=== PATIENT | male | born 1965 | race Caucasian/White ===

== ENCOUNTER 2020-11-30 16:26 | Emergency (ER) | payer MEDICAID, SELFPAY | END 2020-11-30 19:49 | disposition left against medical advice (07) | PROVIDERS: Emergency Provider Emergency Medicine | DX: R73.9 Hyperglycemia, unspecified (principal) ==

== ENCOUNTER 2022-03-24 18:52 | Inpatient (IN) | payer BC, MEDICAID, SELFPAY ==
[2022-03-24 19:14] VITALS: BP 132/88; PULSE 115; O2SAT 94
[2022-03-24 20:15] VITALS: BP 122/86; PULSE 111; RESP 16; TEMP 36.7; O2SAT 95; BMI 28.3
--- NOTE | 2022-03-24 21:40 | ECG_ITS ---
Test Reason : med clearance Blood Pressure : / mmHG Vent. Rate : 098 BPM Atrial Rate : 098 BPM P-R Int : 136 ms QRS Dur : 086 ms QT Int : 380 ms P-R-T Axes : 071 071 029 degrees QTc Int : 485 ms Normal sinus rhythm Prolonged QT RSR' or QR pattern in V1 suggests right ventricular conduction delay Nonspecific ST abnormality Inferior leads Abnormal ECG No previous ECGs available Referred By: Addy Kauffman Electronically Signed By:VEDA MABRY MD
[2022-03-24 21:42] LABS: Appearance Urine Clear; Color Urine Yellow; Glucose Urine UA Negative (Negative); Leukocyte Esterase Urine Negative (Negative); Nitrite Urine Negative (Negative); PH 5.5 (5.0-9.0); UMIC TRIGGER UA YES; Urine Blood Negative (Negative); Urine Ketones 15 mg/dL (Negative); Urine Protein 100 (2+) mg/dL (Neg-Trace)
[2022-03-24 21:47] LABS: Amphetamine Screen Urine Not Detected (Not Detect); Barbiturates, Urine Not Detected (Not Detect); Benzodiazepines Screen Urine Not Detected (Not Detect); Cannabinoid Screen Urine POSITIVE (Not Detect); Cocaine Screen Urine Not Detected (Not Detect); Fentanyl, urine Not Detected (Not Detect); Opiate Screen Urine Not Detected (Not Detect); Phencyclidine Screen Urine Not Detected (Not Detect)
--- NOTE | 2022-03-24 21:48 | ED.PSYCH ---
HPI - Psych General Chief Complaint: Psychiatric Symptoms <PANFILO Horne Last Filed: 03/24/22 22:37> Stated Complaint: general weakness <PANFILO Horne Last Filed: 03/24/22 22:37> Time Seen by Provider: 03/24/22 21:39 <PANFILO Horne Last Filed: 03/24/22 22:37> Source: patient and EMS <PANFILO Horne Last Filed: 03/24/22 22:37> Mode of arrival: EMS <PANFILO Horne Last Filed: 03/24/22 22:37> Limitations: no limitations <PANFILO Horne Last Filed: 03/24/22 22:37> History of Present Illness HPI Narrative: This is a 56-year-old male presenting to the emergency department with alcohol intoxication, suicidal, homicidal ideation times a few days. Patient tells me lately he has been feeling like he wants to hang himself, and harm other people and he is afraid he might do it. Patient tells me that he has also been drinking excessively over the past 10 days, tells me he has been drinking a few sleeves of vodka a day. Patient denies any other drugs or tobacco. Patient does not have a particular plan on how he wants to harm other people. He denies visual, auditory and tactile hallucinations. He denies medical complaints this time. <PANFILO Horne Last Filed: 03/24/22 22:37> Related Data Home Medications: Home Medications Medication Instructions Recorded Confirmed atorvastatin 40 mg tablet 1 tab PO DAILY 03/24/22 03/24/22 metformin 1,000 mg tablet 1 tab PO DAILY 03/24/22 03/24/22 <PANFILO Horne Last Filed: 03/24/22 22:37> Allergies/Adverse Reactions: Allergies Allergy/AdvReac Type Severity Reaction Status Date / Time No Known Allergies Allergy Verified 03/24/22 20:19 <PANFILO Horne Last Filed: 03/24/22 22:37> Review of Systems Review of Systems: Constitutional : No Fever, No Chills ENT/Mouth : No Ear Pain, No Nasal Congestion, No sore throat Eyes: No Eye Pain, No Swelling, No Redness Cardiovascular : No Chest Pain, No SOB Respiratory : No Cough, No Sputum, No Dyspnea Gastrointestinal : No Nausea, No Vomiting, No Diarrhea, No Hematochezia, No Melena Genitourinary : No Dysuria, No Urinary Frequency, No Hematuria Musculoskeletal : No Myalgias Skin : No Skin Lesions, No rash Neuro : No Weakness, No Numbness, No Paresthesias, No Dizziness, No Headache Psych : positive Anxiety, positive Depression, positive SI/HI All other systems reviewed and are negative <PANFILO Horne - Last Filed: 03/24/22 22:37> Yes all other systems are reviewed and are negative <PANFILO Horne - Last Filed: 03/24/22 22:37> [facility] Past Medical History Attestation statement: The following information was validated with the patient. <PANFILO Horne - Last Filed: 03/24/22 22:37> Source: old records reviewed and nursing notes reviewed <PANFILO Horne - Last Filed: 03/24/22 22:37> Social History Social History: Social History Alcohol intake: current Alcohol intake frequency: 3 or more drinks per day Alcohol type: hard liquor Use of substances other than those prescribed or required for medical reasons: Yes Substance Use Type: Marijuana Substance Use Frequency: Occasionally Last Used Substance: Days (ago) Advance Directives: No Advance Directives Information Provided: No <PANFILO Horne - Last Filed: 03/24/22 22:37> Physical Exam Vital Signs: Vital Signs: Last Vital Signs Temp 98.4 F 03/25/22 08:35 Pulse 124 H 03/25/22 08:35 Resp 17 03/25/22 08:35 BP 150/99 H 03/25/22 08:35 Pulse Ox 92 03/25/22 08:35 O2 Del Method 03/25/22 08:35 BMI result Body Mass Index 28.3 vss <PANFILO Horne Last Filed: 03/24/22 22:37> Vital Signs: Last Vital Signs Temp 98.4 F 03/25/22 08:35 Pulse 124 H 03/25/22 08:35 Resp 17 03/25/22 08:35 BP 150/99 H 03/25/22 08:35 Pulse Ox 92 03/25/22 08:35 O2 Del Method 03/25/22 08:35 BMI result Body Mass Index 28.3 <Meet Waters MD - Last Filed: 03/25/22 09:45> Appearance: Alert.? Oriented X3.? No acute distress.? Head: Normocephalic, atraumatic, no step-offs or deformities Eyes: Pupils equal, round and reactive to light.? Neck: Normal inspection.? Neck supple.? CVS: Normal heart rate and rhythm.? Pulses normal.? Respiratory: No respiratory distress.? Breath sounds normal.? Abdomen: Soft and nontender.? Skin: Skin warm and dry.? Normal skin color.? Normal skin turgor.? Extremities: No lower extremity edema.? No calf ttp. 5/5 strength to bilateral upper and lower extremities Neuro: Oriented X 3.? No motor deficit.? No sensory deficit. CN 2-12 intact <PANFILO Horne - Last Filed: 03/24/22 22:37> Course Reevaluation(s) Reevaluation #1: CBC appears to be within normal limits. Chemistry with no acute findings requiring intervention, anion gap elevated secondary to alcohol abuse, transaminitis elevated however not tender to palpation of abdomen on exam. I suspect this is likely secondary to chronic alcohol abuse. UA clean without infection. Toxicology positive for marijuana. Ethanol level to 0 7 consistent with acute alcohol intoxication. COVID negative. This time patient will be placed into physician observation to allow more time to be evaluated by the behavioral health team. At time observation started common cooperative no acute distress will continue to monitor. Patient will be placed on a Section 12 <PANFILO Horne - Last Filed: 03/24/22 22:37> Time: 22:36 <PANFILO Horne - Last Filed: 03/24/22 22:37> Reevaluation #2: 56-year-old male with alcohol abuse came in for SI and HI, still to be evaluated by N and expect inpatient bed search, patient is a showing a mild symptoms of alcohol withdrawal with CIWA score of 8-10 will start the patient on phenobarb p.o.. And keep monitoring. <Meet Waters MD - Last Filed: 03/25/22 09:45> Time: 09:44 <Meet Waters MD - Last Filed: 03/25/22 09:45> Medications Administered Generic Name Dose Route Start Last Admin Trade Name Freq PRN Reason Stop Dose Admin Atorvastatin Calcium 40 mg 03/25/22 09:00 03/25/22 08:13 Atorvastatin Calcium 40 Mg Tablet PO 40 mg DAILY PETER Administration Chlordiazepoxide HCl 50 mg 03/25/22 07:13 03/25/22 08:13 Chlordiazepoxide Hcl 25 Mg Capsule PO 50 mg Q6H PRN Administration Alcohol Withdrawal Metformin HCl 1,000 mg 03/25/22 09:00 03/25/22 08:13 Metformin Hcl 1,000 Mg Tablet PO 1,000 mg DAILY PETER Administration Discontinued Medications Generic Name Dose Route Start Last Admin Trade Name Freq PRN Reason Stop Dose Admin Chlordiazepoxide HCl 50 mg 03/25/22 02:46 03/25/22 02:50 Chlordiazepoxide Hcl 25 Mg Capsule PO 03/25/22 02:47 50 mg ONCE ONE Administration <PANFILO Horne - Last Filed: 03/24/22 22:37> Medications Administered Generic Name Dose Route Start Last Admin Trade Name Freq PRN Reason Stop Dose Admin Atorvastatin Calcium 40 mg 03/25/22 09:00 03/25/22 08:13 Atorvastatin Calcium 40 Mg Tablet PO 40 mg DAILY PETER Administration Chlordiazepoxide HCl 50 mg 03/25/22 07:13 03/25/22 08:13 Chlordiazepoxide Hcl 25 Mg Capsule PO 50 mg Q6H PRN Administration Alcohol Withdrawal Metformin HCl 1,000 mg 03/25/22 09:00 03/25/22 08:13 Metformin Hcl 1,000 Mg Tablet PO 1,000 mg DAILY PETER Administration Discontinued Medications Generic Name Dose Route Start Last Admin Trade Name Freq PRN Reason Stop Dose Admin Chlordiazepoxide HCl 50 mg 03/25/22 02:46 03/25/22 02:50 Chlordiazepoxide Hcl 25 Mg Capsule PO 03/25/22 02:47 50 mg ONCE ONE Administration <Meet Waters MD - Last Filed: 03/25/22 09:45> MDM - Psych MDM Narrative Medical decision making narrative: [id number] 56-year-old male presents to the emergency department with suicidal, homicidal ideation and ETOH. Physical examination benign Plan at this time medical clearance evaluation by the behavioral health team. <PANFILO Horne - Last Filed: 03/24/22 22:37> Medical Records Attestation: I reviewed the patient's medical records. <PANFILO Horne - Last Filed: 03/24/22 22:37> Lab Data Attestation: I reviewed the patient's lab results. <PANFILO Horne - Last Filed: 03/24/22 22:37> Result diagrams: : 03/24/22 21:58 03/24/22 21:58 <PANFILO Horne - Last Filed: 03/24/22 22:37> Labs: Lab Results 03/24/22 03/24/22 03/24/22 Range/Units 21:28 21:28 21:29 WBC (4.8-10.8) X10*3/uL RBC (4.60-5.80) X10*6/uL Hgb (14.0-18.0) g/dl Hct (42.0-52.0) % MCV (80.0-98.0) fL MCH (27.0-33.0) pg MCHC (31.0-36.0) g/dl RDW (11.0-16.0) % Plt Count (160-400) X10*3/uL MPV (9.4-12.4) fL Immature Gran % (Auto) (0.0-0.4) % Neut % (Auto) (45-73) % Lymph % (Auto) (20-40) % Harris % (Auto) (2-11) % Eos % (Auto) (0-4) % Baso % (Auto) (0-2) % Lymph # (Auto) (1.2-4.9) X10*3/uL Harris # (Auto) (0.1-1.2) X10*3/uL Eos # (Auto) (0.0-0.4) X10*3/uL Baso # (Auto) (0.0-0.2) X10*3/uL Abs Immat Gran (auto) (0.00-0.03) X10*3/uL Absolute Neuts (auto) (2.0-8.3) x10*3/uL Absolute Nucleated RBC (0.0-0.012) X10*3/uL Nucleated RBC % (auto) (0.0-0.2) /100WBC Sodium (135-145) mmol/L Potassium (3.3-5.1) mmol/L Chloride (96-108) mmol/L Carbon Dioxide (22-29) mmol/L Anion Gap (12-20) BUN (9-16) mg/dL Creatinine (0.5-1.4) mg/dL Estim Creat Clear Calc Estimated GFR POC Glucose (60-115) mg/dL Random Glucose (60-115) mg/dL Calcium (8.4-10.2) mg/dL Magnesium (1.6-2.6) mg/dL Total Bilirubin (0.0-1.0) mg/dL AST (5-37) U/L ALT (0-40) U/L Alkaline Phosphatase (39-117) U/L Total Protein (6.5-8.0) g/dL Albumin (3.5-5.0) g/dL Urine Color Yellow Urine Appearance Clear Urine pH 5.5 (5.0-9.0) Ur Specific [place] 1.010 (1.005-1.025) Urine Protein 100 (2+) H (Neg-Trace) mg/dL Urine Glucose (UA) Negative (Negative) mg/dL Urine Ketones 15 (Negative) mg/dL Urine Blood Negative (Negative) Urine Nitrite Negative (Negative) Ur Leukocyte Esterase Negative (Negative) Urine RBC 0-2 (0-2) /HPF Urine WBC 0-5 (0-5) /HPF Ur Squamous Epith Cells 0-2 (0-2) /HPF Urine Bacteria None Seen (None Seen) Hyaline Casts 0-2 (0-2) /LPF Urine Opiates Screen Not Detected (Not Detect) Urine Fentanyl Screen Not Detected (Not Detect) Ur Barbiturates Screen Not Detected (Not Detect) Ur Phencyclidine Scrn Not Detected (Not Detect) Ur Amphetamines Screen Not Detected (Not Detect) U Benzodiazepines Scrn Not Detected (Not Detect) Urine Cocaine Screen Not Detected (Not Detect) U Marijuana (THC) Screen POSITIVE H (Not Detect) Ethyl Alcohol mg/dL COVID-19 ([facility]) Negative (Negative) COVID-19 Clin Com See Note 03/24/22 03/24/22 03/25/22 Range/Units 21:58 21:58 07:04 WBC 8.8 (4.8-10.8) X10*3/uL RBC 5.35 (4.60-5.80) X10*6/uL Hgb 16.6 (14.0-18.0) g/dl Hct 47.2 (42.0-52.0) % MCV 88.2 (80.0-98.0) fL MCH 31.0 (27.0-33.0) pg MCHC 35.2 (31.0-36.0) g/dl RDW 11.7 (11.0-16.0) % Plt Count 168 (160-400) X10*3/uL MPV 10.0 (9.4-12.4) fL Immature Gran % (Auto) 0.3 (0.0-0.4) % Neut % (Auto) 70.9 (45-73) % Lymph % (Auto) 23.2 (20-40) % Harris % (Auto) 4.5 (2-11) % Eos % (Auto) 0.5 (0-4) % Baso % (Auto) 0.6 (0-2) % Lymph # (Auto) 2.1 (1.2-4.9) X10*3/uL Harris # (Auto) 0.4 (0.1-1.2) X10*3/uL Eos # (Auto) 0.0 (0.0-0.4) X10*3/uL Baso # (Auto) 0.1 (0.0-0.2) X10*3/uL Abs Immat Gran (auto) 0.03 (0.00-0.03) X10*3/uL Absolute Neuts (auto) 6.3 (2.0-8.3) x10*3/uL Absolute Nucleated RBC 0.000 (0.0-0.012) X10*3/uL Nucleated RBC % (auto) 0.0 (0.0-0.2) /100WBC Sodium 138 (135-145) mmol/L Potassium 3.9 (3.3-5.1) mmol/L Chloride 95 L (96-108) mmol/L Carbon Dioxide 24 (22-29) mmol/L Anion Gap 23 H (12-20) BUN 8 L (9-16) mg/dL Creatinine 0.73 (0.5-1.4) mg/dL Estim Creat Clear Calc 109.5 Estimated GFR > 60 POC Glucose 148 H (60-115) mg/dL Random Glucose 175 H (60-115) mg/dL Calcium 9.3 (8.4-10.2) mg/dL Magnesium 1.8 (1.6-2.6) mg/dL Total Bilirubin 0.4 (0.0-1.0) mg/dL AST 158 H (5-37) U/L ALT 182 H (0-40) U/L Alkaline Phosphatase 91 (39-117) U/L Total Protein 7.5 (6.5-8.0) g/dL Albumin 4.7 (3.5-5.0) g/dL Urine Color Urine Appearance Urine pH (5.0-9.0) Ur Specific [place] (1.005-1.025) Urine Protein (Neg-Trace) mg/dL Urine Glucose (UA) (Negative) mg/dL Urine Ketones (Negative) mg/dL Urine Blood (Negative) Urine Nitrite (Negative) Ur Leukocyte Esterase (Negative) Urine RBC (0-2) /HPF Urine WBC (0-5) /HPF Ur Squamous Epith Cells (0-2) /HPF Urine Bacteria (None Seen) Hyaline Casts (0-2) /LPF Urine Opiates Screen (Not Detect) Urine Fentanyl Screen (Not Detect) Ur Barbiturates Screen (Not Detect) Ur Phencyclidine Scrn (Not Detect) Ur Amphetamines Screen (Not Detect) U Benzodiazepines Scrn (Not Detect) Urine Cocaine Screen (Not Detect) U Marijuana (THC) Screen (Not Detect) Ethyl Alcohol 207 mg/dL COVID-19 ([facility]) (Negative) COVID-19 Clin Com <PANFILO Horne - Last Filed: 03/24/22 22:37> Lab Results 11/12/22 11/12/22 11/12/22 Range/Units 21:28 21:28 21:29 WBC (4.8-10.8) X10*3/uL RBC (4.60-5.80) X10*6/uL Hgb (14.0-18.0) g/dl Hct (42.0-52.0) % MCV (80.0-98.0) fL MCH (27.0-33.0) pg MCHC (31.0-36.0) g/dl RDW (11.0-16.0) % Plt Count (160-400) X10*3/uL MPV (9.4-12.4) fL Immature Gran % (Auto) (0.0-0.4) % Neut % (Auto) (45-73) % Lymph % (Auto) (20-40) % Harris % (Auto) (2-11) % Eos % (Auto) (0-4) % Baso % (Auto) (0-2) % Lymph # (Auto) (1.2-4.9) X10*3/uL Harris # (Auto) (0.1-1.2) X10*3/uL Eos # (Auto) (0.0-0.4) X10*3/uL Baso # (Auto) (0.0-0.2) X10*3/uL Abs Immat Gran (auto) (0.00-0.03) X10*3/uL Absolute Neuts (auto) (2.0-8.3) x10*3/uL Absolute Nucleated RBC (0.0-0.012) X10*3/uL Nucleated RBC % (auto) (0.0-0.2) /100WBC Sodium (135-145) mmol/L Potassium (3.3-5.1) mmol/L Chloride (96-108) mmol/L Carbon Dioxide (22-29) mmol/L Anion Gap (12-20) BUN (9-16) mg/dL Creatinine (0.5-1.4) mg/dL Estim Creat Clear Calc Estimated GFR POC Glucose (60-115) mg/dL Random Glucose (60-115) mg/dL Calcium (8.4-10.2) mg/dL Magnesium (1.6-2.6) mg/dL Total Bilirubin (0.0-1.0) mg/dL AST (5-37) U/L ALT (0-40) U/L Alkaline Phosphatase (39-117) U/L Total Protein (6.5-8.0) g/dL Albumin (3.5-5.0) g/dL Urine Color Yellow Urine Appearance Clear Urine pH 5.5 (5.0-9.0) Ur Specific [place] 1.010 (1.005-1.025) Urine Protein 100 (2+) H (Neg-Trace) mg/dL Urine Glucose (UA) Negative (Negative) mg/dL Urine Ketones 15 (Negative) mg/dL Urine Blood Negative (Negative) Urine Nitrite Negative (Negative) Ur Leukocyte Esterase Negative (Negative) Urine RBC 0-2 (0-2) /HPF Urine WBC 0-5 (0-5) /HPF Ur Squamous Epith Cells 0-2 (0-2) /HPF Urine Bacteria None Seen (None Seen) Hyaline Casts 0-2 (0-2) /LPF Urine Opiates Screen Not Detected (Not Detect) Urine Fentanyl Screen Not Detected (Not Detect) Ur Barbiturates Screen Not Detected (Not Detect) Ur Phencyclidine Scrn Not Detected (Not Detect) Ur Amphetamines Screen Not Detected (Not Detect) U Benzodiazepines Scrn Not Detected (Not Detect) Urine Cocaine Screen Not Detected (Not Detect) U Marijuana (THC) Screen POSITIVE H (Not Detect) Ethyl Alcohol mg/dL COVID-19 ([facility]) Negative (Negative) COVID-19 Clin Com See Note 03/24/22 03/24/22 03/25/22 Range/Units 21:58 21:58 07:04 WBC 8.8 (4.8-10.8) X10*3/uL RBC 5.35 (4.60-5.80) X10*6/uL Hgb 16.6 (14.0-18.0) g/dl Hct 47.2 (42.0-52.0) % MCV 88.2 (80.0-98.0) fL MCH 31.0 (27.0-33.0) pg MCHC 35.2 (31.0-36.0) g/dl RDW 11.7 (11.0-16.0) % Plt Count 168 (160-400) X10*3/uL MPV 10.0 (9.4-12.4) fL Immature Gran % (Auto) 0.3 (0.0-0.4) % Neut % (Auto) 70.9 (45-73) % Lymph % (Auto) 23.2 (20-40) % Harris % (Auto) 4.5 (2-11) % Eos % (Auto) 0.5 (0-4) % Baso % (Auto) 0.6 (0-2) % Lymph # (Auto) 2.1 (1.2-4.9) X10*3/uL Harris # (Auto) 0.4 (0.1-1.2) X10*3/uL Eos # (Auto) 0.0 (0.0-0.4) X10*3/uL Baso # (Auto) 0.1 (0.0-0.2) X10*3/uL Abs Immat Gran (auto) 0.03 (0.00-0.03) X10*3/uL Absolute Neuts (auto) 6.3 (2.0-8.3) x10*3/uL Absolute Nucleated RBC 0.000 (0.0-0.012) X10*3/uL Nucleated RBC % (auto) 0.0 (0.0-0.2) /100WBC Sodium 138 (135-145) mmol/L Potassium 3.9 (3.3-5.1) mmol/L Chloride 95 L (96-108) mmol/L Carbon Dioxide 24 (22-29) mmol/L Anion Gap 23 H (12-20) BUN 8 L (9-16) mg/dL Creatinine 0.73 (0.5-1.4) mg/dL Estim Creat Clear Calc 109.5 Estimated GFR > 60 POC Glucose 148 H (60-115) mg/dL Random Glucose 175 H (60-115) mg/dL Calcium 9.3 (8.4-10.2) mg/dL Magnesium 1.8 (1.6-2.6) mg/dL Total Bilirubin 0.4 (0.0-1.0) mg/dL AST 158 H (5-37) U/L ALT 182 H (0-40) U/L Alkaline Phosphatase 91 (39-117) U/L Total Protein 7.5 (6.5-8.0) g/dL Albumin 4.7 (3.5-5.0) g/dL Urine Color Urine Appearance Urine pH (5.0-9.0) Ur Specific [place] (1.005-1.025) Urine Protein (Neg-Trace) mg/dL Urine Glucose (UA) (Negative) mg/dL Urine Ketones (Negative) mg/dL Urine Blood (Negative) Urine Nitrite (Negative) Ur Leukocyte Esterase (Negative) Urine RBC (0-2) /HPF Urine WBC (0-5) /HPF Ur Squamous Epith Cells (0-2) /HPF Urine Bacteria (None Seen) Hyaline Casts (0-2) /LPF Urine Opiates Screen (Not Detect) Urine Fentanyl Screen (Not Detect) Ur Barbiturates Screen (Not Detect) Ur Phencyclidine Scrn (Not Detect) Ur Amphetamines Screen (Not Detect) U Benzodiazepines Scrn (Not Detect) Urine Cocaine Screen (Not Detect) U Marijuana (THC) Screen (Not Detect) Ethyl Alcohol 207 mg/dL COVID-19 ([facility]) (Negative) COVID-19 Clin Com <Meet Waters MD - Last Filed: 03/25/22 09:45> Critical Care Time Critical Care Time Critical Care Time: No <PANFILO Horne - Last Filed: 03/24/22 22:37> Discharge Plan Discharge Clinical Impression: Suicidal ideation, Depression, Acute anxiety, Alcohol intoxication <PANFILO Horne - Last Filed: 03/24/22 22:37> Patient Disposition: Still a Patient <PANFILO Horne - Last Filed: 03/24/22 22:37> Prescriptions: No Action atorvastatin 40 mg tablet 1 tab PO DAILY metformin 1,000 mg tablet 1 tab PO DAILY <PANFILO Horne - Last Filed: 03/24/22 22:37>
[2022-03-24 21:50] LABS: COVID-19 Test Negative (Negative)
[2022-03-24 22:05] LABS: MANUAL DIFF FLAG NO
[2022-03-24 22:07] LABS: Basophils Absolute Auto 0.1 X10*3/uL (0.0-0.2); Basophils Percent Auto 0.6 % (0-2); Eosinophils Percent Auto 0.5 % (0-4); Hematocrit 47.2 % (42.0-52.0); Hemoglobin 16.6 g/dl (14.0-18.0); Imm Gran Abs Auto 0.03 X10*3/uL (0.00-0.03); Imm Gran Pct Auto 0.3 % (0.0-0.4); Lymphocytes Absolute Auto 2.1 X10*3/uL (1.2-4.9); Lymphocytes Percent Auto 23.2 % (20-40); Mean Corpuscular HGB Conc 35.2 g/dl (31.0-36.0); Mean Corpuscular Volume 88.2 fL (80.0-98.0); Monocytes Absolute Auto 0.4 X10*3/uL (0.1-1.2); Monocytes Percent Auto 4.5 % (2-11); Neutrophils Absolute Auto 6.3 x10*3/uL (2.0-8.3); Neutrophils Percent Auto 70.9 % (45-73); Platelet Count 168 X10*3/uL (160-400); Red Blood Count 5.35 X10*6/uL (4.60-5.80); Red Cell Distribution Width 11.7 % (11.0-16.0); White Blood Count 8.8 X10*3/uL (4.8-10.8)
[2022-03-24 22:22] LABS: Alanine Aminotransferase 182 U/L (0-40); Albumin Level 4.7 g/dL (3.5-5.0); Alkaline Phosphatase 91 U/L (39-117); Anion Gap 23 (12-20); Aspartate Amino Transferase 158 U/L (5-37); Bilirubin Total 0.4 mg/dL (0.0-1.0); Blood Urea Nitrogen 8 mg/dL (9-16); Calcium 9.3 mg/dL (8.4-10.2); Carbon Dioxide 24 mmol/L (22-29); Chloride 95 mmol/L (96-108); Creatinine Clr Calc Pharmacy 109.5; Estimated Glomerular Filt Rate > 60; Ethanol 207 mg/dL; Glucose Random 175 mg/dL (60-115); Magnesium 1.8 mg/dL (1.6-2.6); Potassium 3.9 mmol/L (3.3-5.1); Sodium 138 mmol/L (135-145); Total Protein 7.5 g/dL (6.5-8.0)
[2022-03-24 23:33] LABS: Bacteria Urine None Seen (None Seen); Hyaline Casts Urine 0-2 /LPF (0-2); RBC Urine 0-2 /HPF (0-2); Squamous Epithelial Cell Urine 0-2 /HPF (0-2); WBC Urine 0-5 /HPF (0-5)
[2022-03-25] VITALS (8 sets, daily range): BP systolic 128–163; BP diastolic 80–100; PULSE 96–124; RESP 15–18; TEMP 36.3–37.1; O2SAT 91–97
--- NOTE | 2022-03-25 02:45 | PC.NURSE ---
Pt HR 120, pt showing signs of tremors. MD Rojo notified orders being placed.
[2022-03-25] MEDS: chlordiazePOXIDE HCl 25 MG CAPSULE 50 MG PO ×2 (02:50→08:13)
--- NOTE | 2022-03-25 03:38 | PC.NURSE ---
Pt sleeping respirations regular and adequate.
[2022-03-25 07:13] LABS: Glucose, Whole Blood 148 mg/dL (60-115)
--- NOTE | 2022-03-25 07:22 | MHC.CARE ---
Jerrod Smart Sheet Submitted
--- NOTE | 2022-03-25 07:27 | PC.NURSE ---
Addendum entered by Desi Humphrey 03/25/22 08:32: Provider notified of CIWA of 8 s/p PRN Librium administration. HR 125, BP 150/99. Pt given vomit bag Original Note: Report taken from overnight shift. No acute incidents. Plan is for N to eval this AM
[2022-03-25] MEDS: Atorvastatin Calcium 40 MG TABLET PO (08:13)
[2022-03-25] MEDS: metFORMIN HCl 1,000 MG TABLET 1000 MG PO (08:13)
--- NOTE | 2022-03-25 10:49 | PHA.MEDREC ---
Pharmacy Consult ? Medication Reconciliation RN has completed the medication reconciliation, pharmacy reviewed. Spoke with patient and he is only on 2 medications. He is no longer on insulin anymore. Patient last took his medications approximately 10 days ago.
--- NOTE | 2022-03-25 14:41 | ECG_ITS ---
Test Reason : MED CLEARANCE FOR M5 OVER 50 Blood Pressure : / mmHG Vent. Rate : 099 BPM Atrial Rate : 099 BPM P-R Int : 144 ms QRS Dur : 080 ms QT Int : 378 ms P-R-T Axes : 071 064 058 degrees QTc Int : 485 ms Normal sinus rhythm Prolonged QT RSR' or QR pattern in V1 suggests right ventricular conduction delay Nonspecific ST abnormality Abnormal ECG When compared with ECG of 24-MAR-2022 22:49, Nonspecific T wave abnormality no longer evident in Inferior leads Referred By: Addy Kauffman Electronically Signed By:VEDA MABRY MD
[2022-03-25] MEDS: Nicotine Polacrilex 2 MG GUM 4 MG BUCCAL (17:10)
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
[2022-03-25] MEDS: LORazepam 1 MG TABLET PO (19:56)
[2022-03-25 20:07] LABS: Glucose, Whole Blood 262 mg/dL (60-115)
[2022-03-26 06:00] VITALS: BP 149/99; PULSE 101; RESP 20; TEMP 36.7; O2SAT 95
[2022-03-26 08:41] LABS: Glucose, Whole Blood 167 mg/dL (60-115)
[2022-03-26] MEDS: Atorvastatin Calcium 40 MG TABLET PO (08:46)
[2022-03-26] MEDS: Thiamine HCL 100 MG TABLET PO (08:46)
[2022-03-26] MEDS: metFORMIN HCl 1,000 MG TABLET 1000 MG PO (08:46)
[2022-03-26 09:24] LABS: Alanine Aminotransferase 159 U/L (0-40); Albumin Level 4.3 g/dL (3.5-5.0); Alkaline Phosphatase 102 U/L (39-117); Anion Gap 16 (12-20); Aspartate Amino Transferase 122 U/L (5-37); Bilirubin Total 0.6 mg/dL (0.0-1.0); Blood Urea Nitrogen 12 mg/dL (9-16); Calcium 9.8 mg/dL (8.4-10.2); Carbon Dioxide 30 mmol/L (22-29); Chloride 94 mmol/L (96-108); Cholesterol 169 mg/dL; Creatinine Clr Calc Pharmacy 96.3; Estimated Glomerular Filt Rate > 60; Glucose Fasting 189 mg/dL (60-99); HDL Cholesterol 65 mg/dL; LDL Cholesterol Calculated 90 mg/dl; Potassium 4.1 mmol/L (3.3-5.1); Sodium 136 mmol/L (135-145); Total Protein 6.8 g/dL (6.5-8.0); Triglycerides 70 mg/dL
[2022-03-26] MEDS: Nicotine Polacrilex 2 MG GUM 4 MG BUCCAL ×3 (09:35→13:50)
[2022-03-26 09:49] LABS: Thyroid Stimulating Hormone 0.57 uIU/mL (0.32-4.0)
--- NOTE | 2022-03-26 17:24 | P.HPPS_ITS ---
HPI Date of Service: 03/26/22 Chief Complaint: depression, si Sources of Information: patient interviewed, chart reviewed and crisis/core team assessment reviewed HPI Subjective Notes: [place] Warning and Conditional Voluntary Healthcare Proxy: No Guardianship: No Medical Problems Affecting Mental Status: No Narrative: 56 yo male, to ER on 03/24 with acute alcohol intoxication, SI, HI. Reports drinking as an issue for most of his adult life. Asking for help with getting on track. Identifies his son, age 6, as his motivation for wanting sobriety. Denies current SI, HI. I was drunk . Denies hx of violence, feeling safe on the unit- I will never hurt myself or anyone else and I never have. Denies criminal history Pt reports several interventions for addiction without success-willing to meet with [facility] Addictions team to discuss recovery. Discussed depressive sx-pt acknowledges, denies hx of dennis, hypomania, sx of psychosis, Depression makes sense-I would be willing to work on it. Past Psychiatric History: IP Psych: Denies OP: Denies but with referral interest Addictions Rx: [facility]CA 2020- I got COVID , found it helpful for a while, groups helpful, however when peer group changed to several men who were just released from incarceration, it was less helpful. Reports in and out of programs [phone]- [facility] x 5 pt reports SA- Denies any history Medical Evaluation Reviewed: Yes Reviewed medical clearance and labs with pt. [facility] Medical History (Updated 03/27/22 @ 08:54 by Suzan Galeano, OUTSIDE PRODUCTION INSPECTOR) Alcohol use disorder, severe, dependence Recurrent major depression-severe Narrative: LFT elevation DM-2 HLD Family History: Denies hx of family suicides or violence Mom 78-estranged hx depression-does not talk with pt because I am like my father Sister-depression Father-alcoholism Brother-abusive to pt and his family pt reports- he tortured all of us Social History: Raised by parents, who when he was age 3. Pt lived with his mom. 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 He currently works at [employer] and prefers to be local to be close to his 6 yo son. Pt is . He reports he his , who is from [facility], to help her establish citizenship~11 years ago. They ~2.5 years ago, however, co- parent their 6.yo. Pt's lives in brother's home-recently asked to leave due to a lcohol use and decreased LOF Substance History: Alcohol- few sleeves daily for several weeks. Gradual increase in intake over the past five years. Believes this is the cause of DM2 dx. BAL 207 on admit. Recent binge ~10 days Positive THC Trauma History: Affirms-brother, , father Diagnostics Vital Signs (24Hr): Vital Signs - 24 hr 03/25/22 19:52 03/26/22 06:00 Temperature 97.3 F 98.1 F Pulse Rate 99 101 H Respiratory Rate 16 20 Blood Pressure 134/80 149/99 H Pulse Oximetry 92 95 Oxygen Delivery Method Room Air BMI result Body Mass Index 28.3 Labs Results: 03/24/22 21:58 03/26/22 07:59 Labs: Laboratory Results - last 48 hr 03/24/22 03/24/22 03/24/22 21:28 21:28 21:29 WBC RBC Hgb Hct MCV MCH MCHC RDW Plt Count MPV Immature Gran % (Auto) Neut % (Auto) Lymph % (Auto) [place] % (Auto) Eos % (Auto) Baso % (Auto) Lymph # (Auto) [place] # (Auto) Eos # (Auto) Baso # (Auto) Abs Immat Gran (auto) Absolute Neuts (auto) Absolute Nucleated RBC Nucleated RBC % (auto) Sodium Potassium Chloride Carbon Dioxide Anion Gap BUN Creatinine Estim Creat Clear Calc Estimated GFR POC Glucose Random Glucose Fasting Glucose Calcium Magnesium Total Bilirubin AST ALT Alkaline Phosphatase Total Protein Albumin Triglycerides Cholesterol LDL Cholesterol, Calc HDL Cholesterol TSH Urine Color Yellow Urine Appearance Clear Urine pH 5.5 Ur Specific [place] 1.010 Urine Protein 100 (2+) H Urine Glucose (UA) Negative Urine Ketones 15 Urine Blood Negative Urine Nitrite Negative Ur Leukocyte Esterase Negative Urine RBC 0-2 Urine WBC 0-5 Ur Squamous Epith Cells 0-2 Urine Bacteria None Seen Hyaline Casts 0-2 Urine Opiates Screen Not Detected Urine Fentanyl Screen Not Detected Ur Barbiturates Screen Not Detected Ur Phencyclidine Scrn Not Detected Ur Amphetamines Screen Not Detected U Benzodiazepines Scrn Not Detected Urine Cocaine Screen Not Detected U Marijuana (THC) Screen POSITIVE H Ethyl Alcohol COVID-19 ([facility]) Negative COVID-19 Clin Com See Note 03/24/22 03/24/22 03/25/22 21:58 21:58 07:04 WBC 8.8 RBC 5.35 Hgb 16.6 Hct 47.2 MCV 88.2 MCH 31.0 MCHC 35.2 RDW 11.7 Plt Count 168 MPV 10.0 Immature Gran % (Auto) 0.3 Neut % (Auto) 70.9 Lymph % (Auto) 23.2 [place] % (Auto) 4.5 Eos % (Auto) 0.5 Baso % (Auto) 0.6 Lymph # (Auto) 2.1 [place] # (Auto) 0.4 Eos # (Auto) 0.0 Baso # (Auto) 0.1 Abs Immat Gran (auto) 0.03 Absolute Neuts (auto) 6.3 Absolute Nucleated RBC 0.000 Nucleated RBC % (auto) 0.0 Sodium 138 Potassium 3.9 Chloride 95 L Carbon Dioxide 24 Anion Gap 23 H BUN 8 L Creatinine 0.73 Estim Creat Clear Calc 109.5 Estimated GFR > 60 POC Glucose 148 H Random Glucose 175 H Fasting Glucose Calcium 9.3 Magnesium 1.8 Total Bilirubin 0.4 AST 158 H ALT 182 H Alkaline Phosphatase 91 Total Protein 7.5 Albumin 4.7 Triglycerides Cholesterol LDL Cholesterol, Calc HDL Cholesterol TSH Urine Color Urine Appearance Urine pH Ur Specific [place] Urine Protein Urine Glucose (UA) Urine Ketones Urine Blood Urine Nitrite Ur Leukocyte Esterase Urine RBC Urine WBC Ur Squamous Epith Cells Urine Bacteria Hyaline Casts Urine Opiates Screen Urine Fentanyl Screen Ur Barbiturates Screen Ur Phencyclidine Scrn Ur Amphetamines Screen U Benzodiazepines Scrn Urine Cocaine Screen U Marijuana (THC) Screen Ethyl Alcohol 207 COVID-19 ([facility]) COVID-19 Clin Com 03/25/22 03/26/22 03/26/22 20:02 07:59 08:37 WBC RBC Hgb Hct MCV MCH MCHC RDW Plt Count MPV Immature Gran % (Auto) Neut % (Auto) Lymph % (Auto) [place] % (Auto) Eos % (Auto) Baso % (Auto) Lymph # (Auto) [place] # (Auto) Eos # (Auto) Baso # (Auto) Abs Immat Gran (auto) Absolute Neuts (auto) Absolute Nucleated RBC Nucleated RBC % (auto) Sodium 136 Potassium 4.1 Chloride 94 L Carbon Dioxide 30 H Anion Gap 16 BUN 12 Creatinine 0.83 Estim Creat Clear Calc 96.3 Estimated GFR > 60 POC Glucose 262 H 167 H Random Glucose Fasting Glucose 189 H Calcium 9.8 Magnesium Total Bilirubin 0.6 AST 122 H ALT 159 H Alkaline Phosphatase 102 Total Protein 6.8 Albumin 4.3 Triglycerides 70 Cholesterol 169 LDL Cholesterol, Calc 90 HDL Cholesterol 65 TSH 0.57 Urine Color Urine Appearance Urine pH Ur Specific [place] Urine Protein Urine Glucose (UA) Urine Ketones Urine Blood Urine Nitrite Ur Leukocyte Esterase Urine RBC Urine WBC Ur Squamous Epith Cells Urine Bacteria Hyaline Casts Urine Opiates Screen Urine Fentanyl Screen Ur Barbiturates Screen Ur Phencyclidine Scrn Ur Amphetamines Screen U Benzodiazepines Scrn Urine Cocaine Screen U Marijuana (THC) Screen Ethyl Alcohol COVID-19 ([facility]) COVID-19 Clin Com Meds/Allergies Allergies Allergies Allergy/AdvReac Type Severity Reaction Status Date / Time No Known Allergies Allergy Verified 03/24/22 20:19 Mental Status Exam Mental Status Exam Patient Appearance: Fatigued and Appropriate Patient Orientation: Person, Place, Time and Situation Level of Consciousness: Alert Patient Behavior: Appropriate, Talkative, Cooperative and Good Eye Contact Mood Description: Sad Affect Description: Flat Patient Cognition Impaired: No Ability to Follow Directions: Good Speech Pattern: Spontaneous Speech Memory Description: Episodic Impaired Hallucinations: None Delusions: Not Present Thought Process: Intact and Goal Oriented Thought Content: positive for Intact, positive for Goal Oriented, positive for Suicidal Ideation (denies plan or intent) and positive for Homicidal Ideation (denies plan or intent) Depressive Symptoms: Insomnia, Difficulty Sleeping, Changes in Appetite and Thoughts of /Suicide (denies) Judgement: Good Assessment & Plan Assessment & Plan (1) Alcohol use disorder, severe, dependence: Status: Acute Code(s): F10.20 - Alcohol dependence, uncomplicated (2) Recurrent major depression-severe: Status: Acute Code(s): F33.2 - Major depressive disorder, recurrent severe without psychotic features Plan 56 yo male, history of alcohol use disorder, depression presented with intoxication, SI, HI on 03/24/22 with BAL 207 and urine tox positive for THC. Pt completing detox and is looking for assistance with recovery and depression. No current SI, HI plan or intent-wanting to work on recovery as his six year old son is his motivation for sobriety and for getting treatment. Plan: Addiction Consult Remeron trial B12/Folate Nutritional Replacement Pt unsure right now if he wants to trial residenital again as it has not been too helpful in the past and at times has been frightening to him-He will discuss further with team. 1600-pt approached tw to ask for discharge. and son arrived on the unit and need pt to discharge as they have no funds for groceries pt states. affirms this claim. 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 Brief family meeting with , son, pt and [facility] paraprofessional interpreter. was clear in saying she cannot control pt's drinking, but is concerned and attempts to help him all she can, however, he does not listen to her feedback. She demonstrates care for pt but frustration with current sx of illness. Pt is able to contract for his safety, will be staying with his family tonight and will discharge. As a result, antidepressants were not initiated. Pt is aware he may return if needed. He would not remain for referrals to be made for out pt services. Patient educated on: diagnosis, medication risk/benefits, substance abuse and therapeutic strategies Informed Consent: understands Reason for continued inpatient stay Substantial Risk for: stable for discharge
--- NOTE | 2022-03-26 17:24 | PM.PSYDC ---
DS: Providers Provider Date of Service: 03/26/22 Date of admission: 03/25/22 15:05 Date of discharge: 03/26/22 Primary care physician: Alma Wood MD Admitting clinician: Suzan Galeano Attending physician on admission: Kishore Mena Consults: 03/26/22 12:49 Addiction Medicine Routine Consulting Provider: Addiction Covering Reason for consultation: recovery coaching Has provider been notified: No Attending physician on discharge: Kishore Mena Discharging clinician: Suzan Galeano DS: Diagnosis Discharge Diagnosis (1) Alcohol use disorder, severe, dependence: Status: Acute (2) Recurrent major depression-severe: Status: Acute DS: Medications Discharge Medications Home Medications: Previous Rx's Medication Instructions Recorded atorvastatin 40 mg tablet 1 tab PO DAILY #30 tabs 03/26/22 metformin 1,000 mg tablet 1 tab PO DAILY #30 tabs 03/26/22 multivitamin (Daily-Liliana tablet) 1 tab PO DAILY #30 tabs 03/26/22 thiamine mononitrate (vit B1) 100 100 mg PO DAILY #30 tabs 03/26/22 mg tablet Mental Status Exam Mental Status Exam Patient Appearance: Fatigued and Appropriate Patient Orientation: Person, Place, Time and Situation Level of Consciousness: Alert Patient Behavior: Appropriate, Talkative, Cooperative and Good Eye Contact Mood Description: Sad Affect Description: Flat Patient Cognition Impaired: No Ability to Follow Directions: Good Speech Pattern: Spontaneous Speech Memory Description: Episodic Impaired Hallucinations: None Delusions: Not Present Thought Process: Intact and Goal Oriented Thought Content: positive for Intact, positive for Goal Oriented, positive for Suicidal Ideation (denies plan or intent) and positive for Homicidal Ideation (denies plan or intent) Depressive Symptoms: Insomnia, Difficulty Sleeping, Changes in Appetite and Thoughts of /Suicide (denies) Judgement: Good Data Data Completed and Pending Completed studies during hospitalization [Text1]: 03/24/22 03/24/22 03/24/22 21:28 21:28 21:29 WBC RBC Hgb Hct MCV MCH MCHC RDW Plt Count MPV Immature Gran % (Auto) Neut % (Auto) Lymph % (Auto) [place] % (Auto) Eos % (Auto) Baso % (Auto) Lymph # (Auto) [place] # (Auto) Eos # (Auto) Baso # (Auto) Abs Immat Gran (auto) Absolute Neuts (auto) Absolute Nucleated RBC Nucleated RBC % (auto) Sodium Potassium Chloride Carbon Dioxide Anion Gap BUN Creatinine Estim Creat Clear Calc Estimated GFR POC Glucose Random Glucose Fasting Glucose Calcium Magnesium Total Bilirubin AST ALT Alkaline Phosphatase Total Protein Albumin Triglycerides Cholesterol LDL Cholesterol, Calc HDL Cholesterol TSH Urine Color Yellow Urine Appearance Clear Urine pH 5.5 Ur Specific [place] 1.010 Urine Protein 100 (2+) H Urine Glucose (UA) Negative Urine Ketones 15 Urine Blood Negative Urine Nitrite Negative Ur Leukocyte Esterase Negative Urine RBC 0-2 Urine WBC 0-5 Ur Squamous Epith Cells 0-2 Urine Bacteria None Seen Hyaline Casts 0-2 Urine Opiates Screen Not Detected Urine Fentanyl Screen Not Detected Ur Barbiturates Screen Not Detected Ur Phencyclidine Scrn Not Detected Ur Amphetamines Screen Not Detected U Benzodiazepines Scrn Not Detected Urine Cocaine Screen Not Detected U Marijuana (THC) Screen POSITIVE H Ethyl Alcohol COVID-19 ([facility]) Negative COVID-19 Clin Com See Note 03/24/22 03/24/22 03/25/22 21:58 21:58 07:04 WBC 8.8 RBC 5.35 Hgb 16.6 Hct 47.2 MCV 88.2 MCH 31.0 MCHC 35.2 RDW 11.7 Plt Count 168 MPV 10.0 Immature Gran % (Auto) 0.3 Neut % (Auto) 70.9 Lymph % (Auto) 23.2 [place] % (Auto) 4.5 Eos % (Auto) 0.5 Baso % (Auto) 0.6 Lymph # (Auto) 2.1 [place] # (Auto) 0.4 Eos # (Auto) 0.0 Baso # (Auto) 0.1 Abs Immat Gran (auto) 0.03 Absolute Neuts (auto) 6.3 Absolute Nucleated RBC 0.000 Nucleated RBC % (auto) 0.0 Sodium 138 Potassium 3.9 Chloride 95 L Carbon Dioxide 24 Anion Gap 23 H BUN 8 L Creatinine 0.73 Estim Creat Clear Calc 109.5 Estimated GFR > 60 POC Glucose 148 H Random Glucose 175 H Fasting Glucose Calcium 9.3 Magnesium 1.8 Total Bilirubin 0.4 AST 158 H ALT 182 H Alkaline Phosphatase 91 Total Protein 7.5 Albumin 4.7 Triglycerides Cholesterol LDL Cholesterol, Calc HDL Cholesterol TSH Urine Color Urine Appearance Urine pH Ur Specific [place] Urine Protein Urine Glucose (UA) Urine Ketones Urine Blood Urine Nitrite Ur Leukocyte Esterase Urine RBC Urine WBC Ur Squamous Epith Cells Urine Bacteria Hyaline Casts Urine Opiates Screen Urine Fentanyl Screen Ur Barbiturates Screen Ur Phencyclidine Scrn Ur Amphetamines Screen U Benzodiazepines Scrn Urine Cocaine Screen U Marijuana (THC) Screen Ethyl Alcohol 207 COVID-19 ([facility]) COVID-19 Clin Com 03/25/22 03/26/22 03/26/22 20:02 07:59 08:37 WBC RBC Hgb Hct MCV MCH MCHC RDW Plt Count MPV Immature Gran % (Auto) Neut % (Auto) Lymph % (Auto) [place] % (Auto) Eos % (Auto) Baso % (Auto) Lymph # (Auto) [place] # (Auto) Eos # (Auto) Baso # (Auto) Abs Immat Gran (auto) Absolute Neuts (auto) Absolute Nucleated RBC Nucleated RBC % (auto) Sodium 136 Potassium 4.1 Chloride 94 L Carbon Dioxide 30 H Anion Gap 16 BUN 12 Creatinine 0.83 Estim Creat Clear Calc 96.3 Estimated GFR > 60 POC Glucose 262 H 167 H Random Glucose Fasting Glucose 189 H Calcium 9.8 Magnesium Total Bilirubin 0.6 AST 122 H ALT 159 H Alkaline Phosphatase 102 Total Protein 6.8 Albumin 4.3 Triglycerides 70 Cholesterol 169 LDL Cholesterol, Calc 90 HDL Cholesterol 65 TSH 0.57 Urine Color Urine Appearance Urine pH Ur Specific [place] Urine Protein Urine Glucose (UA) Urine Ketones Urine Blood Urine Nitrite Ur Leukocyte Esterase Urine RBC Urine WBC Ur Squamous Epith Cells Urine Bacteria Hyaline Casts Urine Opiates Screen Urine Fentanyl Screen Ur Barbiturates Screen Ur Phencyclidine Scrn Ur Amphetamines Screen U Benzodiazepines Scrn Urine Cocaine Screen U Marijuana (THC) Screen Ethyl Alcohol COVID-19 ([facility]) COVID-19 Clin Com DS: Summary Hospital Course Hospital Course: Admission to adult psychiatry for exacerbation of alcohol use disorder and recurrent major depression. Pt had a brief admission and decided he was not interested once intoxication had resolved. His family needed him to provide financial resources and came to the unit to request that he come home. Pt denies SI, HI plan or intent. He will return to his 's home with their son. He was invited to return if he felt it was needed. Pt states that he believes he does not require in pt psychiatric care but will pursue OP resources on his own. Time spent discussing smoking cessation with patient: 3 to 10 minutes Status at Discharge Functional status at discharge: independent ambulation Overall status at discharge: patient is back to baseline Time Spent with Patient Time attestation: Total time spent providing and/or coordinating discharge services: 45 Time spent: Greater than 30 minutes Discharge Plan Discharge Anticipated Discharge Date/Time: 03/26/22 17:00 Patient Disposition: Home, Self-Care Discharge Diagnosis: Alcohol Use Disorder, Severe, Dependence Major Depression, Recurrent, Moderate Referrals: Alma Wood MD [Primary Care Provider] - 1 Week Discharge Medications: New multivitamin [Daily-Liliana] Tablet 1 tab PO DAILY Qty: 30 0RF thiamine mononitrate (vit B1) 100 mg Tablet 100 mg PO DAILY Qty: 30 0RF Continued atorvastatin 40 mg tablet 1 tab PO DAILY Qty: 30 0RF metformin 1,000 mg tablet 1 tab PO DAILY Qty: 30 0RF Discharge Orders: Discharge Order (Routine); Ordered 03/26/22 Ordered By: Suzan Galeano Diet: Advance to usual diet Activity on Discharge: As tolerated Stand Alone Forms: Patient Portal Discharge page, Community Support Care Plan Goals: Maintain mood and safe behaviors Take medications as directed Practice coping skills Health Concerns: Mood stability Refusal of treatment and services Plan of Treatment: Refuses referrals Refuses medications Refuses to remain for treatment Assessment: non-psychotic, non-homicidal, non-suicidal, non-manic Discharge with and son to family home. Discharge Date/Time: 03/26/22 16:56
== END 2022-03-26 16:56 | disposition home or self-care (01) | DRG 751 ==
LOC: HO.ED 22:37 → HO.PM5 03-25 15:52
PROVIDERS: Physician Assistant; Admitting Provider Psychiatry & Neurology Psychiatry; Emergency Provider Emergency Medicine; PCP Family Medicine; Visit Provider Psychiatry & Neurology Psychiatry
DX: F33.1 Major depressive disorder, recurrent, moderate (principal); R45.851 Suicidal ideations; R45.850 Homicidal ideations; F17.210 Nicotine dependence, cigarettes, uncomplicated; F10.229 Alcohol dependence with intoxication, unspecified; Y90.7 Blood alcohol level of 200-239 mg/100 ml; Z20.822 Contact with and (suspected) exposure to COVID-19; Z71.6 Tobacco abuse counseling; Z79.84 Long term (current) use of oral hypoglycemic drugs; Z79.899 Other long term (current) drug therapy
CPT/HCPCS: 36415; 80053; 80061; 80307; 81001; 81003; 82077; 82947; 83735; 84443; 85025; 87635; 93005; 99285

== ENCOUNTER 2022-10-20 11:55 | Emergency (ER) | payer BC, MEDICAID, SELFPAY ==
[2022-10-20 12:04] VITALS: BP 122/86; PULSE 94; RESP 19; TEMP 36.6; O2SAT 98; BMI 31.6
--- NOTE | 2022-10-20 12:07 | ED_ITS ---
HPI - General Adult General Chief complaint: General Medical Stated complaint: bs check Time Seen by Provider: 10/20/22 13:11 History of Present Illness HPI narrative: Patient complains of frequent urination over many weeks, he does have diabetes uses metformin, does not do fingersticks at home and he is concerned that his sugar might be elevated At this time he is out of his metformin and has not used today He denies fever chills dizziness confusion weakness, there is no chest pain no abdominal pain no vomiting, he tolerates p.o., no vision changes, denies any wounds no headache no fainting o Related Data Previous Rx's Medication Instructions Recorded atorvastatin 40 mg tablet 1 tab PO DAILY #30 tabs 03/26/22 metformin 1,000 mg tablet 1 tab PO DAILY #30 tabs 03/26/22 multivitamin (Daily-Liliana tablet) 1 tab PO DAILY #30 tabs 03/26/22 thiamine mononitrate (vit B1) 100 100 mg PO DAILY #30 tabs 03/26/22 mg tablet metformin 1,000 mg tablet 1,000 mg PO DAILY #14 tabs 10/20/22 Allergies Allergy/AdvReac Type Severity Reaction Status Date / Time No Known Allergies Allergy Verified 10/20/22 12:04 COUNTS INCLUDE 234 BEDS AT THE [facility] Past Medical History Source: nursing notes reviewed Medical History (Updated 10/21/22 @ 00:04 by Venkat Martinez) Alcohol use disorder, severe, dependence Recurrent major depression-severe Social History Social History Household Members: Other Household Members Other:: lives with brother and his family Housing: House Do you presently have visiting nurse or other home services: No Alcohol intake: current Alcohol intake frequency: 3 or more drinks per day Alcohol type: hard liquor Patient Tobacco Use Status: Current everyday Tobacco user Tobacco use type: Cigarette Cigarettes Per Day: 20 Second Hand Smoke Exposure: No Substance Use Type: Marijuana Advance Directives: No Advance Directives Information Provided: No service: Yes (d/c bad conduct desertion) Sexual orientation: Straight/Heterosexual Physical Exam ED Vital Signs: Vital Signs - 24 hr 10/20/22 12:04 10/20/22 14:58 Temperature 98 F Pulse Rate 94 76 Respiratory Rate 19 18 Blood Pressure 122/86 117/78 Pulse Oximetry 98 Oxygen Delivery Method Room Air BMI result Body Mass Index 31.6 general appearance no distress, comfortable cooperative The eyes no redness or discharge The pharynx is clear with moist mucous membranes Neck is supple Chest clear to auscultation bilateral Heart no murmur Abdomen soft nontender The skin no rash, turgor is normal Extremities full range of motion x4 Neuro gait and balance are normal, comprehension and expression are normal, cranial nerves 2-12 intact as tested, no facial asymmetry, motor 5/5 x4, and sensation intact and symmetrical in extremities, cerebellar exam normal with finger to nose normal Course Course Course Narrative: RME - 57 yo male with history of depression/anxiety, DM2 on metformin presents to the ER for a glucose check. He states the last couple of weeks he has had increased urination at night. No polydipsia. No other urinary symptoms. POC 270 in triage, reports eating some egg whites 30 mins ago. Has been compliant with metformin, but taking extra doses at times. Plan: basic labs, UA Patient remains come comfortable stable throughout ER visit, and initial glucose was 300 Urinalysis did show elevated glucose as well as ketones of 15 Urinalysis did not show any sign of infection Bicarb was normal with no anion gap Patient was given insulin to address the anion gap, he was able to hydrate and drink fluids easily He is advised to follow closely with his doctor and to request glucometer so he can have some idea how his sugars are running, he may need adjustment in his medications and well-appearing patient is discharged He was made a wear of the importance of following with the doctor, in a timely way, and of long-term risks of poorly controlled diabetes Medications Administered Discontinued Medications Generic Name Dose Route Start Last Admin Trade Name Dean PRN Reason Stop Dose Admin Insulin Human Lispro 6 unit 10/20/22 14:37 10/20/22 14:43 Insulin Lispro 100 Unit/Ml 3 Ml Vial SUBCUT 10/20/22 14:38 6 unit ONCE ONE Administration Medical Decision Making Lab Data [facility] Lab Attestation statement: I reviewed the patient's lab results. 10/20/22 12:10 10/20/22 12:10 Labs: Lab Results 10/20/22 10/20/22 10/20/22 Range/Units 12:04 12:10 12:10 WBC 7.4 (4.8-10.8) X10*3/uL RBC 4.81 (4.60-5.80) X10*6/uL Hgb 15.1 (14.0-18.0) g/dl Hct 43.2 (42.0-52.0) % MCV 89.8 (80.0-98.0) fL MCH 31.4 (27.0-33.0) pg MCHC 35.0 (31.0-36.0) g/dl RDW 12.1 (11.0-16.0) % Plt Count 230 D (160-400) X10*3/uL MPV 9.5 (9.4-12.4) fL Immature Gran % (Auto) 0.3 (0.0-0.4) % Neut % (Auto) 51.2 (45-73) % Lymph % (Auto) 38.8 (20-40) % [place] % (Auto) 7.2 (2-11) % Eos % (Auto) 2.0 (0-4) % Baso % (Auto) 0.5 (0-2) % Lymph # (Auto) 2.9 (1.2-4.9) X10*3/uL [place] # (Auto) 0.5 (0.1-1.2) X10*3/uL Eos # (Auto) 0.2 (0.0-0.4) X10*3/uL Baso # (Auto) 0.0 (0.0-0.2) X10*3/uL Abs Immat Gran (auto) 0.02 (0.00-0.03) X10*3/uL Absolute Neuts (auto) 3.8 (2.0-8.3) x10*3/uL Absolute Nucleated RBC 0.000 (0.0-0.012) X10*3/uL Nucleated RBC % (auto) 0.0 (0.0-0.2) /100WBC Sodium 136 (135-145) mmol/L Potassium 4.7 (3.3-5.1) mmol/L Chloride 101 (96-108) mmol/L Carbon Dioxide 26 (22-29) mmol/L Anion Gap 14 (12-20) BUN 10 (9-16) mg/dL Creatinine 0.84 (0.5-1.4) mg/dL Estim Creat Clear Calc 99.1 Estimated GFR > 60 POC Glucose 270 H (60-115) mg/dL Random Glucose 320 H (60-115) mg/dL Calcium 10.2 (8.4-10.2) mg/dL Urine Color Urine Appearance Urine pH (5.0-9.0) Ur Specific [place] (1.005-1.025) Urine Protein (Neg-Trace) mg/dL Urine Glucose (UA) (Negative) mg/dL Urine Ketones (Negative) mg/dL Urine Blood (Negative) Urine Nitrite (Negative) Ur Leukocyte Esterase (Negative) Urine RBC (0-2) /HPF Urine WBC (0-5) /HPF Ur Squamous Epith Cells (0-2) /HPF Urine Bacteria (None Seen) Hyaline Casts (0-2) /LPF 10/20/22 10/20/22 Range/Units 13:36 14:56 WBC (4.8-10.8) X10*3/uL RBC (4.60-5.80) X10*6/uL Hgb (14.0-18.0) g/dl Hct (42.0-52.0) % MCV (80.0-98.0) fL MCH (27.0-33.0) pg MCHC (31.0-36.0) g/dl RDW (11.0-16.0) % Plt Count (160-400) X10*3/uL MPV (9.4-12.4) fL Immature Gran % (Auto) (0.0-0.4) % Neut % (Auto) (45-73) % Lymph % (Auto) (20-40) % Shasta % (Auto) (2-11) % Eos % (Auto) (0-4) % Baso % (Auto) (0-2) % Lymph # (Auto) (1.2-4.9) X10*3/uL [place] # (Auto) (0.1-1.2) X10*3/uL Eos # (Auto) (0.0-0.4) X10*3/uL Baso # (Auto) (0.0-0.2) X10*3/uL Abs Immat Gran (auto) (0.00-0.03) X10*3/uL Absolute Neuts (auto) (2.0-8.3) x10*3/uL Absolute Nucleated RBC (0.0-0.012) X10*3/uL Nucleated RBC % (auto) (0.0-0.2) /100WBC Sodium (135-145) mmol/L Potassium (3.3-5.1) mmol/L Chloride (96-108) mmol/L Carbon Dioxide (22-29) mmol/L Anion Gap (12-20) BUN (9-16) mg/dL Creatinine (0.5-1.4) mg/dL Estim Creat Clear Calc Estimated GFR POC Glucose 261 H (60-115) mg/dL Random Glucose (60-115) mg/dL Calcium (8.4-10.2) mg/dL Urine Color Yellow Urine Appearance Clear Urine pH 5.5 (5.0-9.0) Ur Specific [place] >= 1.030 H (1.005-1.025) Urine Protein Negative (Neg-Trace) mg/dL Urine Glucose (UA) >=1000 H (Negative) mg/dL Urine Ketones 15 (Negative) mg/dL Urine Blood Negative (Negative) Urine Nitrite Negative (Negative) Ur Leukocyte Esterase Negative (Negative) Urine RBC 0-2 (0-2) /HPF Urine WBC 0-5 (0-5) /HPF Ur Squamous Epith Cells 0-2 (0-2) /HPF Urine Bacteria None Seen (None Seen) Hyaline Casts 0-2 (0-2) /LPF Discharge Plan Discharge Clinical Impression: Elevated glucose Patient Disposition: Home, Self-Care Additional Instructions: Your glucose was 320 in the ER, urine showed some ketones which is probably from the high sugars Follow closely with your doctor, request a glucometer so you can know how well your metformin is working I wrote a prescription for your metformin, but most important is follow closely with your doctor for management of elevated glucose and diabetes Prescriptions: New metformin 1,000 mg tablet 1,000 mg PO DAILY Qty: 14 0RF No Action multivitamin [Daily-Liliana] Tablet 1 tab PO DAILY Qty: 30 0RF thiamine mononitrate (vit B1) 100 mg Tablet 100 mg PO DAILY Qty: 30 0RF atorvastatin 40 mg tablet 1 tab PO DAILY Qty: 30 0RF metformin 1,000 mg tablet 1 tab PO DAILY Qty: 30 0RF Interventions: ED Discharge Assessment Last Done: 10/20/22 15:17 Discharge Date/Time: 10/20/22 15:18
[2022-10-20 12:09] LABS: Glucose, Whole Blood 270 mg/dL (60-115)
[2022-10-20 12:15] LABS: MANUAL DIFF FLAG NO
[2022-10-20 12:16] LABS: Basophils Percent Auto 0.5 % (0-2); Eosinophils Absolute Auto 0.2 X10*3/uL (0.0-0.4); Hematocrit 43.2 % (42.0-52.0); Hemoglobin 15.1 g/dl (14.0-18.0); Imm Gran Abs Auto 0.02 X10*3/uL (0.00-0.03); Imm Gran Pct Auto 0.3 % (0.0-0.4); Lymphocytes Absolute Auto 2.9 X10*3/uL (1.2-4.9); Lymphocytes Percent Auto 38.8 % (20-40); Mean Corpuscular Hemoglobin 31.4 pg (27.0-33.0); Mean Corpuscular Volume 89.8 fL (80.0-98.0); Mean Platelet Volume 9.5 fL (9.4-12.4); Monocytes Absolute Auto 0.5 X10*3/uL (0.1-1.2); Monocytes Percent Auto 7.2 % (2-11); Neutrophils Absolute Auto 3.8 x10*3/uL (2.0-8.3); Neutrophils Percent Auto 51.2 % (45-73); Platelet Count 230 X10*3/uL (160-400); Red Blood Count 4.81 X10*6/uL (4.60-5.80); Red Cell Distribution Width 12.1 % (11.0-16.0); White Blood Count 7.4 X10*3/uL (4.8-10.8)
[2022-10-20 12:39] LABS: Anion Gap 14 (12-20); Blood Urea Nitrogen 10 mg/dL (9-16); Calcium 10.2 mg/dL (8.4-10.2); Carbon Dioxide 26 mmol/L (22-29); Chloride 101 mmol/L (96-108); Creatinine Clr Calc Pharmacy 99.1; Estimated Glomerular Filt Rate > 60; Glucose Random 320 mg/dL (60-115); Potassium 4.7 mmol/L (3.3-5.1); Sodium 136 mmol/L (135-145)
[2022-10-20 13:46] LABS: Appearance Urine Clear; Color Urine Yellow; Glucose Urine UA >=1000 mg/dL (Negative); Leukocyte Esterase Urine Negative (Negative); Nitrite Urine Negative (Negative); PH 5.5 (5.0-9.0); Specific Gravity - Urine >= 1.030 (1.005-1.025); UMIC TRIGGER UACC YES; Urine Blood Negative (Negative); Urine Ketones 15 mg/dL (Negative); Urine Protein Negative (Neg-Trace)
[2022-10-20 14:10] LABS: Bacteria Urine None Seen (None Seen); Hyaline Casts Urine 0-2 /LPF (0-2); RBC Urine 0-2 /HPF (0-2); Squamous Epithelial Cell Urine 0-2 /HPF (0-2); WBC Urine 0-5 /HPF (0-5)
[2022-10-20] MEDS: Insulin Lispro 100 UNIT/ML 3 ML VIAL 6 UNIT SUBCUT (14:43)
[2022-10-20 14:58] VITALS: BP 117/78; PULSE 76; RESP 18
[2022-10-20 15:00] LABS: Glucose, Whole Blood 261 mg/dL (60-115)
== END 2022-10-20 15:18 | disposition home or self-care (01) ==
PROVIDERS: Physician Assistant; Emergency Provider Emergency Medicine; PCP Family Medicine
DX: E11.65 Type 2 diabetes mellitus with hyperglycemia (principal); F17.210 Nicotine dependence, cigarettes, uncomplicated; Z79.84 Long term (current) use of oral hypoglycemic drugs; Z79.02 Long term (current) use of antithrombotics/antiplatelets; Z79.899 Other long term (current) drug therapy
CPT/HCPCS: 36415; 80048; 81001; 82947; 85025; 99283

== ENCOUNTER 2023-04-28 16:50 | Emergency (ER) | payer BC, MEDICAID, SELFPAY | END 2023-04-28 19:09 | disposition left against medical advice (07) | PROVIDERS: Emergency Provider Emergency Medicine | DX: Z53.21 Procedure and treatment not carried out due to patient leaving prior to being seen by health care provider (principal) ==

== ENCOUNTER 2023-04-29 13:47 | Emergency (ER) | payer BC, MEDICAID, SELFPAY ==
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
[2023-04-29 14:19] VITALS: BP 126/78; PULSE 97; RESP 20; TEMP 36.3; O2SAT 99; BMI 28.3
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
[2023-04-29 14:39] LABS: MANUAL DIFF FLAG NO
[2023-04-29 14:40] LABS: Basophils Percent Auto 0.2 % (0-2); Eosinophils Absolute Auto 0.1 X10*3/uL (0.0-0.4); Hemoglobin 14.4 g/dl (14.0-18.0); Imm Gran Abs Auto 0.02 X10*3/uL (0.00-0.03); Imm Gran Pct Auto 0.2 % (0.0-0.4); Lymphocytes Absolute Auto 2.2 X10*3/uL (1.2-4.9); Lymphocytes Percent Auto 24.1 % (20-40); Mean Corpuscular HGB Conc 34.3 g/dl (31.0-36.0); Mean Corpuscular Hemoglobin 31.4 pg (27.0-33.0); Mean Corpuscular Volume 91.7 fL (80.0-98.0); Mean Platelet Volume 9.9 fL (9.4-12.4); Monocytes Absolute Auto 0.6 X10*3/uL (0.1-1.2); Monocytes Percent Auto 6.8 % (2-11); Neutrophils Absolute Auto 6.1 x10*3/uL (2.0-8.3); Neutrophils Percent Auto 67.7 % (45-73); Platelet Count 213 X10*3/uL (160-400); Red Blood Count 4.58 X10*6/uL (4.60-5.80); Red Cell Distribution Width 13.8 % (11.0-16.0)
[2023-04-29 14:57] LABS: Alanine Aminotransferase 25 U/L (0-40); Albumin Level 4.6 g/dL (3.5-5.0); Alkaline Phosphatase 87 U/L (39-117); Anion Gap 11 (12-20); Aspartate Amino Transferase 20 U/L (5-37); Bilirubin Direct 0.1 mg/dL (0.0-0.5); Bilirubin Total 0.3 mg/dL (0.0-1.0); Blood Urea Nitrogen 13 mg/dL (9-16); Calcium 9.6 mg/dL (8.4-10.2); Carbon Dioxide 26 mmol/L (22-29); Chloride 104 mmol/L (96-108); Creatinine Clr Calc Pharmacy 96.3; Estimated Glomerular Filt Rate > 60; Glucose Random 230 mg/dL (60-115); Lipase 24 U/L (8-78); Potassium 3.8 mmol/L (3.3-5.1); Sodium 137 mmol/L (135-145); Total Protein 7.6 g/dL (6.5-8.0)
[2023-04-29] MEDS: iohexoL 350 MG/ML 100 ML INFUS..BTL IV (15:30)
== END 2023-04-29 18:28 | disposition home or self-care (01) ==
PROVIDERS: Physician Assistant Medical; Emergency Provider Emergency Medicine; PCP Family Medicine
DX: S22.32XA Fracture of one rib, left side, initial encounter for closed fracture (principal); R07.89 Other chest pain; R10.9 Unspecified abdominal pain; M54.2 Cervicalgia; R51.9 Headache, unspecified; F17.210 Nicotine dependence, cigarettes, uncomplicated; V43.62XA Car passenger injured in collision with other type car in traffic accident, initial encounter; Y93.9 Activity, unspecified; Y92.410 Unspecified street and highway as the place of occurrence of the external cause; Y99.9 Unspecified external cause status; Z71.6 Tobacco abuse counseling; Z79.899 Other long term (current) drug therapy
CPT/HCPCS: 36415; 70450; 71260; 72125; 74177; 80048; 80076; 83690; 85025; 99282; 99284; Q9967